=== PATIENT | male | born 1990 | race Caucasian/White ===

== ENCOUNTER 2017-02-18 10:21 | Emergency (ER) | payer OTHER ==
[2017-02-18 10:37] VITALS: BMI 20.9
[2017-02-18] MEDS ORDERED: Albuterol-Ipratrop 3 mg / 0.5 (3 ml) UD ONE (11:15)
[2017-02-18] MEDS ORDERED: Sodium Chloride 0.9% 1,000 ML IV ONE (11:27)
[2017-02-18] MEDS ORDERED: Iohexol 240 (50 ml) PO STA (11:33)
--- NOTE | 2017-02-18 11:38 | C.PDOC ---
History Of Present Illness 26 yr old male with PMHx of osteoporosis, asthma and arthritis, presents to the ER with complaints of cough, nausea, vomiting and abdominal pain for the past 3 days. Patient also reports of diarrhea, feeling light headed and dizzy since last night. Patient states he vomited 6-10 times a day, at first it was normal but now its black and brown in color. Patient also states 3 days ago he had a fever of 101. Patient denies chest pain, SOB, dysuria, weakness or numbness. Time Seen by Provider: 02/18/17 11:06 Chief Complaint (Nursing): Abdominal Pain History Per: Patient History/Exam Limitations: no limitations Onset/Duration Of Symptoms: Days (3) Current Symptoms Are (Timing): Still Present Location Of Pain/Discomfort: Diffuse Past Medical History Reviewed: Historical Data, Nursing Documentation, Vital Signs Vital Signs: Last Vital Signs Temp 98.9 F 02/18/17 13:53 Pulse 71 02/18/17 13:53 Resp 18 02/18/17 13:53 BP 120/71 02/18/17 13:53 Pulse Ox 99 02/18/17 16:42 - Medical History PMH: Arthritis, Asthma, Osteoporosis Family History: States: No Known Family Hx - Social History Hx Alcohol Use: No Hx Substance Use: Yes (marijuana) - Immunization History Hx Tetanus Toxoid Vaccination: No Hx Influenza Vaccination: No Hx Pneumococcal Vaccination: No Review Of Systems Except As Marked, All Systems Reviewed And Found Negative. Constitutional: Positive for: Fever (101) Cardiovascular: Positive for: Light Headedness. Negative for: Chest Pain Respiratory: Positive for: Cough. Negative for: Shortness of Breath Gastrointestinal: Positive for: Nausea, Vomiting, Abdominal Pain, Diarrhea Genitourinary: Negative for: Dysuria Neurological: Positive for: Dizziness. Negative for: Weakness, Numbness Physical Exam - Physical Exam Appears: Non-toxic, In Acute Distress Skin: Warm, Dry, No Rash Head: Atraumatic, Normacephalic Oral Mucosa: Dry Throat: Normal, No Erythema, No Exudate Neck: Normal, Normal ROM, Supple Chest: Symmetrical, No Tenderness Cardiovascular: Rhythm Regular, Other (Tachycardic ) Respiratory: Normal Breath Sounds, No Rales, No Rhonchi, No Wheezing Gastrointestinal/Abdominal: Soft, Tenderness (Diffuse), No Mass, No Guarding, No Rebound Extremity: Normal ROM, No Swelling Neurological/Psych: Oriented x3, Normal Speech, Normal Motor ED Course And Treatment - Laboratory Results Result Diagrams: 02/18/17 11:57 02/18/17 11:57 O2 Sat by Pulse Oximetry: 99 Medical Decision Making Medical Decision Making: PLAN: * CT - Abd & Pelvis * CBC * Urinalysis * Morphine IVP * Reglan IVP * Sodium Chloride IV [address] neg for acute pathology. pt tolerates po. abdomen with mild tenderess, no rebound or guarding. will d/c with pepcid and zofran. Disposition Counseled Patient/Family Regarding: Studies Performed, Diagnosis, Need For Followup, Rx Given - Disposition Disposition: HOME/ ROUTINE Disposition Time: 16:39 Condition: IMPROVED Additional Instructions: Follow up in your clinic in 1-2 days. Drink clear fluids and eat some bland foods, like applesauce, plain rice, toast, banana. Return to ER for any worsening symptoms. Prescriptions: Famotidine [Pepcid] 20 mg PO DAILY #15 tab Ondansetron ODT [Zofran ODT] 4 mg PO TID #9 odt Instructions: Gastroenteritis (ED) Forms: General Discharge Instructions, Work Excuse - Clinical Impression Clinical Impression: Gastroenteritis - PA / INSURANCE ASSOCIATE / Resident Statement MD/DO has reviewed & agrees with the documentation as recorded. - Scribe Statement The provider has reviewed the documentation as recorded by the Scribe Diane Dias All medical record entries made by the Scribe were at my direction and personally dictated by me. I have reviewed the chart and agree that the record accurately reflects my personal performance of the history, physical exam, medical decision making, and the department course for this patient. I have also personally directed, reviewed, and agree with the discharge instructions and disposition.
[2017-02-18] MEDS ORDERED: Sodium Chloride 0.9% 1,000 ML ONE (11:56)
[2017-02-18] MEDS ORDERED: Iohexol 240 (50 ml) ONE (11:56)
[2017-02-18 12:04] LABS: BASO % 0.5 % (0.0-2.0); EOS % 0.3 % (0.0-4.0); HEMATOCRIT 46.7 % (35.0-51.0); LYMPH % 18.7 % (20.0-40.0); MEAN CELL VOLUME 88.7 fL (80.0-94.0); MEAN CORPUSCULAR HEMOGLOBIN 30.3 pg (27.0-31.0); MEAN CORPUSCULAR HGB CONC 34.2 g/dL (33.0-37.0); MEAN PLATELET VOLUME 7.4 fL (7.2-11.7); MONO # 0.9 K/uL (0.0-0.8); MONO % 17.8 % (0.0-10.0); NRBC % 0.1 % (0.0-2.0); RED CELL DISTRIBUTION WIDTH 12.9 % (11.5-14.5); WHITE BLOOD COUNT 5.2 K/uL (4.8-10.8)
[2017-02-18 12:09] LABS: CHLORIDE 95 mmol/L (98-107); POTASSIUM 3.7 mmol/L (3.6-5.2); SODIUM 140 mmol/L (132-148)
[2017-02-18 12:11] LABS: AST/SGOT 34 U/L (17-59); BILIRUBIN,TOTAL 0.4 mg/dL (0.2-1.3); CARBON DIOXIDE 26 mmol/L (22-30); GFR AFRICAN-AMERICAN > 60
[2017-02-18 12:12] LABS: ALB/GLOB RATIO 1.4 (1.0-2.1); ALKALINE PHOSPHATASE 65 U/L (38-126); ALT/SGPT 23 U/L (21-72); BLOOD UREA NITROGEN 15 mg/dL (9-20); CALCIUM 9.3 mg/dl (8.6-10.4); GLUCOSE,RANDOM 85 mg/dL (75-110); TOTAL PROTEIN 7.7 g/dL (6.3-8.3)
[2017-02-18 12:13] LABS: RBC URINE 10 /hpf (0-3); URINE BILIRUBIN NEGATIVE (NEGATIVE); URINE BLOOD 1+ (NEGATIVE); URINE COLOR Yellow (YELLOW); URINE GLUCOSE (UA) NORMAL (Normal); URINE KETONE 1+ mg/dL (NEGATIVE); URINE LEUKOCYTE ESTERASE NEG Leu/uL (Negative); URINE PROTEIN NEGATIVE (NEGATIVE); URINE UROBILINOGEN NORMAL mg/dL (0.2-1.0); WBC URINE 8 /hpf (0-5)
[2017-02-18] MEDS ORDERED: Dextrose 5%/0.45% NS 1,000 ML IV SCH ×2 (13:15→15:30)
[2017-02-18] MEDS ORDERED: Iohexol 350mg/ml 100 ML ONE (14:20)
[2017-02-18] MEDS ORDERED: Dextrose 5%/0.45% NS 1,000 ML IV ONE (14:55)
--- NOTE | 2017-02-18 15:12 | CT ---
PROCEDURE: CT Abdomen and Pelvis with contrast HISTORY: rlq pain COMPARISON: None. TECHNIQUE: Contrast dose: Radiation dose: Total exam DLP = mGy-cm. FINDINGS: LOWER THORAX: Unremarkable. LIVER: Unremarkable. No gross lesion or ductal dilatation. GALLBLADDER AND BILE DUCTS: Unremarkable. PANCREAS: Unremarkable. No gross lesion or ductal dilatation. SPLEEN: Unremarkable. ADRENALS: Unremarkable. No mass. KIDNEYS AND URETERS: Unremarkable. No hydronephrosis. No solid mass. VASCULATURE: Unremarkable. No aortic aneurysm. BOWEL: Unremarkable. No obstruction. No gross mural thickening. APPENDIX: Normal appendix. PERITONEUM: Unremarkable. No free fluid. No free air. LYMPH NODES: Unremarkable. No enlarged lymph nodes. BLADDER: Unremarkable. REPRODUCTIVE: Unremarkable. BONES: No acute fracture. OTHER FINDINGS: None. IMPRESSION: Unremarkable contrast enhanced CT of the abdomen and pelvis.
[2017-02-18 16:41] VITALS: O2SAT 99
[2017-02-18 16:51] VITALS: BP 125/75; PULSE 70; RESP 20; TEMP 98.4
== END 2017-02-18 16:54 | disposition home or self-care (01) ==
LOC: C.ER 10:21
DX: K52.9 Noninfective gastroenteritis and colitis, unspecified (principal)